=== PATIENT | female | born 1995 | race Caucasian/White ===

== ENCOUNTER 2020-03-27 21:11 | Emergency (ER) | payer OTHER ==
[~2020-03-27] VITALS: Ht 170.2 cm; Wt 88.6 kg
[2020-03-27] MEDS ORDERED: LIDOcaine 1% w/epiNEPHrine 1:200,000 30ml vial IJ ONE (22:10)
[2020-03-27] MEDS ORDERED: LIDOcaine 1% W/epiNEPHrine 1:200,000 10ml vial IJ ONE (22:10)
[2020-03-27] MEDS ORDERED: DOXY100C2 PO (23:35)
[2020-03-27 23:46] VITALS: BP 130/76
== END 2020-03-27 23:47 | disposition home or self-care (01) ==
LOC: ER 21:12
DX: L60.0 Ingrowing nail (principal); Z88.8 Allergy status to other drugs, medicaments and biological substances
CPT/HCPCS: 11730; 99283; 99284